=== PATIENT | male | born 1970 | race Caucasian/White ===

== ENCOUNTER → 2017-07-21 23:22 | Emergency (ER) | payer SELFPAY ==
[~2017-07-21 23:22] MED LIST: Potassium Chloride LIQUID* 20 MEQ PACKET PO ONE
[2017-07-21 23:31] VITALS: BP 163/117
[2017-07-22 00:47] LABS: Urine Bilirubin Negative (Negative); Urine Glucose Negative (Negative); Urine Nitrite Negative (Negative)
[2017-07-22 01:22] LABS: ALT 56 U/L (7-52); AST 45 U/L (13-39); Albumin 4.3 g/dL (3.2-5.2); Alkaline Phosphatase 44 U/L (34-104); Anion Gap 8 mmol/L (2-11); Blood Urea Nitrogen 13 mg/dL (6-24); CO2 Carbon Dioxide 25 mmol/L (22-32); Calcium 9.2 mg/dL (8.6-10.3); Chloride 105 mmol/L (101-111); EGFR African American 112.5 (>60); EGFR Non-African American 87.5 (>60); Globulin 2.1 g/dL (2-4); Glucose 116 mg/dL (70-100); Potassium 3.5 mmol/L (3.5-5.0); Sodium 138 mmol/L (133-145); Total Protein 6.4 g/dL (6.4-8.9)
[2017-07-22 01:30] LABS: Benzodiazepine Urine Screen None Detected (None Detect)
[2017-07-22 02:17] LABS: Alcohol < 10 mg/dL (<10)
--- NOTE | 2017-07-22 07:46 | RAD ---
HISTORY: Confusion COMPARISONS: None TECHNIQUE: Multiple contiguous axial CT scans were obtained of the head without intravenous contrast. FINDINGS: HEMORRHAGE/INFARCT: There is no hemorrhage or acute infarct. MASSES/SHIFT: There is no mass or shift. EXTRA-AXIAL SPACES: There are no extra-axial fluid collections. SULCI AND VENTRICLES: The sulci and ventricles are normal in size and position for the patient's stated age. CEREBRUM: There are no focal parenchymal abnormalities. BRAINSTEM: There are no focal parenchymal abnormalities. CEREBELLUM: There are no focal parenchymal abnormalities. VESSELS: The vessels are grossly normal. PARANASAL SINUSES: The paranasal sinuses are clear. ORBITS: The orbits are unremarkable. BONES AND SOFT TISSUE: No bone or soft tissue abnormalities are noted. OTHER: None IMPRESSION: NO ACUTE INTRACRANIAL PATHOLOGY.
--- NOTE | 2017-08-02 14:57 | ED ---
Sai Cabrera Angela, scribed for Duong Mahan MD on 07/22/17 at 0831 . Progress - Progress Note Progress Note: This pt was signed out at shift change, pending disposition, awaiting [facility]. Pt was evaluated by Dr. Ryan, who recommends discharge. The pt will be discharged home with outpatient follow up with Jose Eduardo Mcgee . Pt will be discharged to home, in stable condition, with a diagnosis of mood disorder. - Consult/PCP Time Called: 03:15 Course/Dx - Diagnoses Provider Diagnoses: Mood disorder The documentation as recorded by the Sai alonzo Angela accurately reflects the service I personally performed and the decisions made by Negrito kelsey Walter, MD.
== END | disposition home or self-care (01) ==
LOC: ED 23:22
DX: F39 Unspecified mood [affective] disorder (principal)
CPT/HCPCS: 36415; 70450; 80053; 80307; 80320; 81003; 86803; 99283; A9270-GY; G0480